=== PATIENT | male | born 1940 | race Caucasian/White ===

== ENCOUNTER 2021-10-31 00:58 | Emergency (ER) | payer MEDICARE, OTHER ==
[2021-10-31] MEDS ORDERED: traMADol 50 MG Tab PO ONE (00:59)
[2021-10-31] MEDS ORDERED: Lidocaine 2% with EPINEPHrine 1:100,000 20 ML MDV INFILT ONE (00:59)
[2021-10-31] MEDS ORDERED: Sulfamethoxazole/Trimethoprim 800-160 MG Tab PO ONE (00:59)
== END 2021-10-31 02:05 | disposition home or self-care (01) ==
LOC: FB.ED 00:58
DX: L02.416 Cutaneous abscess of left lower limb (principal)
CPT/HCPCS: 10060; 99283; A9270

== ENCOUNTER 2025-01-03 16:35 | Emergency (ER) | payer MEDICARE, OTHER ==
[2025-01-03] MEDS: fentaNYL 100 MCG/2 ML SDV IVPUSH ONE (17:19)
[2025-01-03 17:28] LABS: MEAN PLATELET VOLUME 8.4 fL (6.7-11.0); PLATELET COUNT,PLT 244 x10(3)uL (117-477); RED BLOOD CELL COUNT 5.31 x10(6)uL (3.90-5.90); RED CELL DISTRIBUTION WIDTH 14.7 % (12.4-15.0); WHITE BLOOD CELL COUNT,WBC 14.9 x10-3/uL (3.2-10.1)
[2025-01-03 17:29] LABS: BLOOD UREA NITROGEN,BUN 33 mg/dL (7-18); CARBON DIOXIDE,CO2 28 mmol/L (21-32); CHLORIDE,CL 104 mmol/L (100-110); CREATININE 1.6 mg/dL (0.70-1.30); ESTIMATED GFR 43 mL/min (>60); GLUCOSE RANDOM 150 mg/dL (80-116); POTASSIUM,K 4.8 mmol/L (3.5-5.3); SODIUM,NA 138 mmol/L (135-145)
[2025-01-03 17:34] LABS: A/G RATIO 1.1; ALANINE AMINOTRANSFERASE,ALT 34 U/L (12-36); ASPARTATE AMNIOTRANSFERASE,AST 23 IU/L (5-25); BILIRUBIN TOTAL 0.4 mg/dL (0.1-1.3); PROTEIN TOTAL,TP 6.4 g/dL (6.0-8.0)
[2025-01-03 17:36] LABS: INR 1.07 (1.00-1.24); LYMPHOCYTES PERCENT MAN 2 % (13-37); MONOCYTES PERCENT MAN 4 % (4-12); PTT,PARTIAL THROMBOPLSTIN TIME 21.6 SECONDS (24.4-33.2); SEG NEUTROPHILS PERCENT MAN 94 % (46-82)
[2025-01-03 17:37] LABS: EST CRCL DRUG DOSING (CG) 35.60 mL/min
[2025-01-03] MEDS: HYDROmorphone 2 MG/ML SDV IVPUSH ONE (18:30)
== END 2025-01-03 18:55 ==
LOC: FB.ED 16:35
DX: S72.141A Displaced intertrochanteric fracture of right femur, initial encounter for closed fracture (principal); Z79.899 Other long term (current) drug therapy; Z95.5 Presence of coronary angioplasty implant and graft; W11.XXXA Fall on and from ladder, initial encounter; Y93.89 Activity, other specified
CPT/HCPCS: 36415; 73502; 80053; 85025; 85610; 85730; 96374; 96375; 99285; J1171; J3010